=== PATIENT | male | born 1940 | race Caucasian/White ===

== ENCOUNTER 2016-12-02 12:38 | Inpatient (IN) | payer OTHER, BC ==
[~2016-12-02] VITALS: Ht 182.9 cm; Wt 133.6 kg
[~2016-12-02 12:38] MED LIST: ASPIR-TRIN325 M1 PO; ASPIRIN CHEWABL81 M1 PO; ASPIRIN E.C.81 M1 PO; ASPIRIN PO; ASPIRIN325 MG PO; ASPIRIN81 M1 PO; ATIVAN0.5 MG PO; ATROVENT 0.03%30 ML BOTH NARES; AUGMENTIN875 MG PO; Artane PO; Ativan PO; BUDEPRION SR150 MG PO; BUMETANIDE1 M1 PO; BUMETANIDE1 MG PO; Bumex PO; CAL-MAG TABLET1 EACH; CALCITRIOL0.25 MCG PO; CALCIUM PO; CEFTIN500 MG PO; CELEXA20 MG PO; CITALOPRAM HBR20 MG PO; CITALOPRAM HBR40 MG PO; Calcium/Magnesium 50 PO; DALIRESP500 MCG PO; DEXILANT60 MG PO; DuoNeb IH; Ecotrin PO; FLOMAX0.4 M1 PO; FLOMAX0.4 MG PO; FUROSEMIDE20 MG PO; Flomax PO; IPRATR-ALBUTEROL3 ML IH; IPRATROPIUM BRO30 ML BOTH NARES; LEVAQUIN500 MG PO; LEVOFLOXACIN750 MG PO; LOPRESSOR25 MG PO; LORAZEPAM0.5 MG PO; Lasix PO; Levaquin PO; Lopressor PO; MAGN PO; METOPROLOL TART25 MG PO; Mag-Ox PO; NEXIUM10 MG PO; NEXIUM40 MG PO; NUVIGIL150 MG PO; OMEGA-3 1,0001 EACH PO; Omega III EPA + DHA PO; PAXIL20 MG PO; PHENOBARBITAL15 MG PO; PHENOBARBITAL30 MG PO; PLAVIX75 MG PO; PREDNISONE10 MG PO; PRINIVIL40 MG PO; PRISTIQ50 MG PO; PROVENTIL2.5 MG/3 M IH; Plavix PO; Proventil,Ventolin H IH; RESTASIS 01 DROP/0.4 BOTH EYES; ROCALTROL0.25 MCG PO; Rocaltrol PO; SIMVASTATIN40 MG PO; SIMVASTATIN80 M1 PO; SINGULAIR10 MG PO; SPIRIVA RESPIMAT4 G1 IH; SPIRIVA RESPIMAT4 GM IH; SPIRIVA1 INHALATI IH; SYMBICORT60 INHALA1 IH; SYMBICORT60 INHALAT IH; Symbicort 160-4.5 mc IH; Symbicort 80-4.5 mcg IH; TRIHEXYPHENIDYL2 MG PO; Tums PO; ZESTRIL,PRINIVI10 M1 PO; ZOCOR80 MG PO; Zocor PO; [UNRECOGNIZED DRUG - OTHER] PO; celeXA PO; predniSONE PO
[2016-12-02 13:52] LABS: ADD MIUA? YES; BILIRUBIN NEGATIVE; BLOOD SMALL; COLOR YELLOW ((YELLOW)); GLUCOSE (STRIP) 50; KETONES NEGATIVE; LEUKOCYTES NEGATIVE; NITRITE NEGATIVE; PROTEIN (STRIP) 100; SPECIFIC GRAVITY 1.016 (1.000-1.030); UROBILINOGEN 0.2 MG/DL (0.2-1.0)
[2016-12-02 13:55] LABS: BACTERIA NONE SEEN /HPF; EPITHELIAL CELLS NONE SEEN /HPF; MUCUS NONE SEEN /LPF; RED BLOOD CELLS 0-5 /HPF (0-5); UCUL ADDED? NO; WHITE BLOOD CELLS 0-5 /HPF (0-5)
[2016-12-02 14:45] LABS: HEMATOCRIT 46.7 % (38.0-50.0); MCH 32.4 PG (29.0-34.0); MCHC 33.4 G/DL (30.0-36.0); MCV 96.9 FL (86-99); MEAN PLAT.VOLUME 10.3 uM^3 (9.0-12.4); PLATELET COUNT 114 K/uL (156-360); RBC DIS.WIDTH-CV 13.5 % (11.8-14.6); RBC DIS.WIDTH-SD 46.1 % (39-53); RED BLOOD COUNT 4.82 M/uL (4.00-5.50); WHITE BLOOD COUNT 16.5 K/uL (4.1-10.2)
[2016-12-02 14:55] LABS: INTER. NORMALIZED RATIO 1.1; PROTHROMBIN TIME 11.1 (9.2-11.2); PTT 30.1 (25-32)
[2016-12-02 14:56] LABS: INFLUENZA A VIRAL ANTIGEN NEGATIVE; INFLUENZA B VIRAL ANTIGEN NEGATIVE
[2016-12-02 14:59] LABS: CHLORIDE 100 mEq/L (99-109); POTASSIUM 4.3 mEq/L (3.7-5.4); SODIUM 138 mEq/L (136-147)
[2016-12-02 15:00] LABS: GLUCOSE 168 mg/dL (70-99)
[2016-12-02 15:02] LABS: ANION GAP 9 MEQ/L (2-14)
[2016-12-02 15:04] LABS: GFR ESTIMATE (CALCULATED) 48 mL/min/
[2016-12-02 15:05] LABS: UREA NITROGEN (BUN) 20 mg/dL (9-23)
[2016-12-02 15:14] LABS: TROP-I INTERPRETATION NEGATIVE; TROPONIN-I 0.05 ng/mL (0.0-0.30)
[2016-12-02 15:39] LABS: EOSINOPHIL (%) 1.1 % (0-5); EOSINOPHIL COUNT 0.2 K/uL (0-0.3); HEMATOLOGY COMMENT 1 SMEAR COMPATIBLE; IMMATURE GRANULOCYTE (%) 0.3 % (0.0-0.7); IMMATURE GRANULOCYTE COUNT 0.5 K/uL; LYMPHOCYTE COUNT 1.8 K/uL (1.0-2.8); MONOCYTE (%) 11.6 % (3-12); MONOCYTE COUNT 1.9 K/uL (0-0.8); NEUTROPHIL (%) 76.2 % (45-76); NEUTROPHIL COUNT 12.6 K/uL (1.8-6.4); PLAT.SUFFICIENCY DECREASED; USER ID NPD
[2016-12-02] MEDS ORDERED: LIPITOR40 MG PO (16:47)
[2016-12-02] MEDS ORDERED: ALBUTEROL SULFATE (16:48)
[2016-12-02] MEDS ORDERED: PROVENTIL,2.5 MG/3 M IH (16:55)
[2016-12-02 19:35] VITALS: BP 123/78
[2016-12-02 22:58] VITALS: BP 120/78
[2016-12-03 07:29] LABS: ANION GAP 10 MEQ/L (2-14); CHLORIDE 101 MEQ/L (99-109); GFR ESTIMATE (CALCULATED) 52 mL/min/; GLUCOSE 153 mg/dL (70-99); POTASSIUM 4.1 MEQ/L (3.7-5.4); SAMPLE HEMOLYSIS CHECK 0; SAMPLE ICTERIC CHECK 0; SAMPLE LIPEMIA CHECK 0; SODIUM 141 MEQ/L (136-147); UREA NITROGEN (BUN) 21 mg/dL (9-23)
[2016-12-03 08:25] LABS: HEMATOCRIT 43.2 % (38.0-50.0); MCH 32.7 PG (29.0-34.0); MCHC 33.6 G/DL (30.0-36.0); MCV 97.3 FL (86-99); MEAN PLAT.VOLUME 10.7 uM^3 (9.0-12.4); PLATELET COUNT 105 K/uL (156-360); RBC DIS.WIDTH-CV 13.7 % (11.8-14.6); RBC DIS.WIDTH-SD 46.9 % (39-53); RED BLOOD COUNT 4.44 M/uL (4.00-5.50); WHITE BLOOD COUNT 14.1 K/uL (4.1-10.2)
[2016-12-03 08:50] VITALS: BP 162/90
[2016-12-03 17:42] VITALS: BP 167/92
[2016-12-03 21:54] VITALS: BP 129/79
[2016-12-04 07:18] LABS: ANION GAP 10 MEQ/L (2-14); CHLORIDE 102 MEQ/L (99-109); GFR ESTIMATE (CALCULATED) 52 mL/min/; GLUCOSE 162 mg/dL (70-99); POTASSIUM 4.4 MEQ/L (3.7-5.4); SAMPLE HEMOLYSIS CHECK 0; SAMPLE ICTERIC CHECK 0; SAMPLE LIPEMIA CHECK 0; SODIUM 140 MEQ/L (136-147); UREA NITROGEN (BUN) 21 mg/dL (9-23)
[2016-12-04 07:39] LABS: EOSINOPHIL (%) 5.2 % (0-5); EOSINOPHIL COUNT 0.5 K/uL (0-0.3); IMMATURE GRANULOCYTE (%) 0.2 % (0.0-0.7); MCH 33.1 PG (29.0-34.0); MCHC 33.8 G/DL (30.0-36.0); MCV 97.9 FL (86-99); MEAN PLAT.VOLUME 10.9 uM^3 (9.0-12.4); MONOCYTE (%) 11.2 % (3-12); NEUTROPHIL (%) 60.2 % (45-76); NEUTROPHIL COUNT 5.3 K/uL (1.8-6.4); PLATELET COUNT 99 K/uL (156-360); RBC DIS.WIDTH-CV 13.8 % (11.8-14.6); RBC DIS.WIDTH-SD 48.9 % (39-53); RED BLOOD COUNT 4.29 M/uL (4.00-5.50)
[2016-12-04 07:41] LABS: WHITE BLOOD COUNT 8.8 K/uL (4.1-10.2)
[2016-12-04 08:29] VITALS: BP 113/74
[2016-12-04 16:00] VITALS: BP 110/62
[2016-12-04 22:37] VITALS: BP 141/78
[2016-12-05 07:31] LABS: ANION GAP 9 MEQ/L (2-14); CHLORIDE 102 MEQ/L (99-109); GFR ESTIMATE (CALCULATED) 57 mL/min/; GLUCOSE 163 mg/dL (70-99); POTASSIUM 4.1 MEQ/L (3.7-5.4); SAMPLE HEMOLYSIS CHECK 0; SAMPLE ICTERIC CHECK 0; SAMPLE LIPEMIA CHECK 0; SODIUM 138 MEQ/L (136-147); UREA NITROGEN (BUN) 24 mg/dL (9-23)
[2016-12-05 08:16] VITALS: BP 193/91
[2016-12-05 10:24] VITALS: BP 169/74
[2016-12-05] MEDS ORDERED: LEVAQUIN500 MG PO (12:49)
== END 2016-12-05 14:35 | disposition home or self-care (01) | DRG 194 ==
LOC: EME → EDBD 12:38 → EDOF 15:39 → 5EAST 15:39
PROVIDERS: Emergency Medicine; Family Medicine
PROC: 5A09457 Assistance with Respiratory Ventilation, 24-96 Consecutive Hours, Continuous Positive Airway Pressure (ICD-10-PCS; principal; 2016-12-03)
DX: J15.9 Unspecified bacterial pneumonia (principal); I50.32 Chronic diastolic (congestive) heart failure; J98.11 Atelectasis; F33.9 Major depressive disorder, recurrent, unspecified; J44.9 Chronic obstructive pulmonary disease, unspecified; N18.2 Chronic kidney disease, stage 2 (mild); E11.22 Type 2 diabetes mellitus with diabetic chronic kidney disease; Z99.81 Dependence on supplemental oxygen; M62.81 Muscle weakness (generalized); E78.5 Hyperlipidemia, unspecified; G47.30 Sleep apnea, unspecified; F41.9 Anxiety disorder, unspecified; I65.22 Occlusion and stenosis of left carotid artery; G40.909 Epilepsy, unspecified, not intractable, without status epilepticus; E66.9 Obesity, unspecified; I66.09 Occlusion and stenosis of unspecified middle cerebral artery; F01.50 Vascular dementia, unspecified severity, without behavioral disturbance, psychotic disturbance, mood disturbance, and anxiety; I67.2 Cerebral atherosclerosis; Z68.39 Body mass index [BMI] 39.0-39.9, adult; I69.322 Dysarthria following cerebral infarction; Z87.891 Personal history of nicotine dependence
CPT/HCPCS: 70450; 71010; 80048; 81003; 83605; 83880; 84484; 85025; 85027; 85610; 85730; 87040; 87502; 93005; 94640; 94640 76; 94660; 94799; 97530 GP; 99202; 99281; 99285; J0456; J0696; J1644; J1940; J2543; J3370; J7050

== ENCOUNTER 2018-03-24 15:30 | Emergency (ER) | payer OTHER, BC ==
[~2018-03-24] VITALS: Ht 182.9 cm; Wt 114.4 kg
[~2018-03-24 15:30] MED LIST changes: +ALBUTEROL SULFATE; +LIPITOR40 MG PO; +PROVENTIL,2.5 MG/3 M IH
[2018-03-24 16:48] LABS: HEMATOCRIT 44.4 % (38.0-50.0); MCH 32.5 PG (29.0-34.0); MCHC 33.8 G/DL (30.0-36.0); MCV 96.1 FL (86-99); PLATELET COUNT 117 K/uL (156-360); RBC DIS.WIDTH-CV 13.2 % (11.8-14.6); RBC DIS.WIDTH-SD 46.8 % (39-53); RED BLOOD COUNT 4.62 M/uL (4.00-5.50); WHITE BLOOD COUNT 7.7 K/uL (4.1-10.2)
[2018-03-24 16:56] LABS: CHLORIDE 100 mEq/L (99-109); POTASSIUM 4.5 mEq/L (3.7-5.4); SODIUM 137 mEq/L (136-147)
[2018-03-24 16:57] LABS: GLUCOSE 109 mg/dL (70-99)
[2018-03-24 17:01] LABS: GFR ESTIMATE (CALCULATED) > 59 mL/min/ (58.99-99999)
[2018-03-24 17:02] LABS: UREA NITROGEN (BUN) 21 mg/dL (9-23)
[2018-03-24 17:08] LABS: TROP-I INTERPRETATION NEGATIVE; TROPONIN-I 0.01 ng/mL (0.0-0.30)
[2018-03-24 19:04] VITALS: BP 135/71
== END 2018-03-24 19:05 | disposition home or self-care (01) ==
LOC: EME 15:30
PROVIDERS: Emergency Medicine
DX: Z04.3 Encounter for examination and observation following other accident (principal); I49.3 Ventricular premature depolarization; W01.0XXA Fall on same level from slipping, tripping and stumbling without subsequent striking against object, initial encounter; E78.5 Hyperlipidemia, unspecified; I11.0 Hypertensive heart disease with heart failure; I50.9 Heart failure, unspecified; J44.9 Chronic obstructive pulmonary disease, unspecified; K21.9 Gastro-esophageal reflux disease without esophagitis; F32.9 Major depressive disorder, single episode, unspecified; Z86.73 Personal history of transient ischemic attack (TIA), and cerebral infarction without residual deficits; Z99.81 Dependence on supplemental oxygen; Z95.5 Presence of coronary angioplasty implant and graft; Z79.02 Long term (current) use of antithrombotics/antiplatelets; Z87.891 Personal history of nicotine dependence
CPT/HCPCS: 71046; 80048; 84484; 85027; 93005; 99281; 99284

== ENCOUNTER 2018-06-11 12:16 | Inpatient (IN) | payer OTHER, BC ==
[~2018-06-11] VITALS: Ht 182.9 cm; Wt 130.7 kg
[2018-06-11 15:32] LABS: HEMATOCRIT 46.4 % (38.0-50.0); HEMOGLOBIN 15.2 G/DL (12.5-16.6); MCH 31.5 PG (29.0-34.0); MCHC 32.8 G/DL (30.0-36.0); MCV 96.3 FL (86-99); PLATELET COUNT 131 K/uL (156-360); RBC DIS.WIDTH-CV 13.3 % (11.8-14.6); RBC DIS.WIDTH-SD 47.2 % (39-53); RED BLOOD COUNT 4.82 M/uL (4.00-5.50); WHITE BLOOD COUNT 10.2 K/uL (4.1-10.2)
[2018-06-11 15:41] LABS: CHLORIDE 102 mEq/L (99-109); POTASSIUM 4.9 mEq/L (3.7-5.4); SODIUM 139 mEq/L (136-147)
[2018-06-11 15:42] LABS: GLUCOSE 106 mg/dL (70-99)
[2018-06-11 15:46] LABS: CREATININE 1.4 mg/dL (0.6-1.3); GFR ESTIMATE (CALCULATED) 52 mL/min/ (58.99-99999)
[2018-06-11 15:47] LABS: UREA NITROGEN (BUN) 28 mg/dL (9-23)
[2018-06-11 15:53] LABS: TROP-I INTERPRETATION INDETERMINATE; TROPONIN-I 0.47 ng/mL (0.0-0.30)
[2018-06-11 17:09] LABS: TROP-I INTERPRETATION INDETERMINATE; TROPONIN-I 0.45 ng/mL (0.0-0.30)
[2018-06-11] MEDS ORDERED: LITE COAT ASPI325 M1 PO (17:52)
[2018-06-11] MEDS ORDERED: NEXIUM 24HR20 M2 PO (17:54)
[2018-06-11] MEDS ORDERED: PHENOBARBITAL30 MG PO (17:57)
[2018-06-11 20:27] VITALS: BP 162/84
[2018-06-11 22:56] VITALS: BP 139/50
[2018-06-11 23:25] LABS: TROP-I INTERPRETATION POSITIVE
[2018-06-11 23:27] LABS: TROPONIN-I 0.74 ng/mL (0.0-0.30)
[2018-06-12 00:42] LABS: INTER. NORMALIZED RATIO 1.2
[2018-06-12 00:59] LABS: PTT 193.3 SEC (25-37)
[2018-06-12 06:56] LABS: BASOPHIL (%) 0.5 % (0-1); BASOPHIL COUNT 0.1 K/uL (0-0.1); EOSINOPHIL (%) 4.8 % (0-5); EOSINOPHIL COUNT 0.5 K/uL (0-0.3); HEMATOCRIT 46.9 % (38.0-50.0); HEMOGLOBIN 15.3 G/DL (12.5-16.6); IMMATURE GRANULOCYTE (%) 0.4 % (0.0-0.7); LYMPHOCYTE (%) 27.5 % (15-42); LYMPHOCYTE COUNT 2.6 K/uL (1.0-2.8); MCH 31.5 PG (29.0-34.0); MCHC 32.6 G/DL (30.0-36.0); MCV 96.7 FL (86-99); MONOCYTE (%) 10.4 % (3-12); NEUTROPHIL (%) 56.4 % (45-76); NEUTROPHIL COUNT 5.4 K/uL (1.8-6.4); NRBC (%) 0.3 /100 WBC (0-0); PLATELET COUNT 130 K/uL (156-360); RBC DIS.WIDTH-CV 13.5 % (11.8-14.6); RBC DIS.WIDTH-SD 48.4 % (39-53); RED BLOOD COUNT 4.85 M/uL (4.00-5.50); WHITE BLOOD COUNT 9.5 K/uL (4.1-10.2)
[2018-06-12 07:20] LABS: ALBUMIN 3.4 G/DL (3.2-4.8); ALKALINE PHOSPHATASE 106 IU/L (3-129); ALT (GPT) 32 IU/L (3-49); AST (GOT) 34 IU/L (2-34); CHLORIDE 98 MEQ/L (99-109); CREATININE 1.4 MG/DL (0.6-1.3); GFR ESTIMATE (CALCULATED) 52 mL/min/ (58.99-99999); GLUCOSE 122 mg/dL (70-99); POTASSIUM 4.6 MEQ/L (3.7-5.4); SODIUM 139 MEQ/L (136-147); TOTAL BILIRUBIN 0.5 MG/DL (0.0-1.0); TOTAL PROTEIN 5.9 G/DL (6.4-8.3); UREA NITROGEN (BUN) 30 mg/dL (9-23)
[2018-06-12 07:31] LABS: TROP-I INTERPRETATION INDETERMINATE; TROPONIN-I 0.57 ng/mL (0.0-0.30)
[2018-06-12 08:13] VITALS: BP 155/75
[2018-06-12 09:58] LABS: HEMOGLOBIN A1c (GLYCOHEMOGLOB) 6.4 % (Below 5.7)
[2018-06-12 11:54] VITALS: BP 137/70
[2018-06-12 15:31] LABS: TROP-I INTERPRETATION INDETERMINATE; TROPONIN-I 0.31 ng/mL (0.0-0.30)
[2018-06-12 15:39] VITALS: BP 109/80
[2018-06-12 19:47] VITALS: BP 140/70
[2018-06-12 22:16] VITALS: BP 120/72
[2018-06-13 05:02] VITALS: BP 126/80
[2018-06-13 08:51] VITALS: BP 140/67
[2018-06-13 11:59] VITALS: BP 160/59
[2018-06-13 16:55] VITALS: BP 148/78
[2018-06-13 19:30] VITALS: BP 150/75
[2018-06-13 23:29] VITALS: BP 147/58
[2018-06-14 03:42] VITALS: BP 149/71
[2018-06-14 05:57] LABS: BASOPHIL (%) 0.4 % (0-1); EOSINOPHIL COUNT 0.5 K/uL (0-0.3); HEMATOCRIT 43.6 % (38.0-50.0); HEMOGLOBIN 13.9 G/DL (12.5-16.6); IMMATURE GRANULOCYTE (%) 0.4 % (0.0-0.7); LYMPHOCYTE COUNT 2.1 K/uL (1.0-2.8); MCH 30.7 PG (29.0-34.0); MCHC 31.9 G/DL (30.0-36.0); MCV 96.2 FL (86-99); MONOCYTE (%) 10.2 % (3-12); MONOCYTE COUNT 0.9 K/uL (0-0.8); NEUTROPHIL COUNT 4.9 K/uL (1.8-6.4); PLATELET COUNT 135 K/uL (156-360); RBC DIS.WIDTH-CV 13.4 % (11.8-14.6); RBC DIS.WIDTH-SD 48.1 % (39-53); RED BLOOD COUNT 4.53 M/uL (4.00-5.50); WHITE BLOOD COUNT 8.5 K/uL (4.1-10.2)
[2018-06-14 06:21] LABS: CHLORIDE 101 MEQ/L (99-109); CREATININE 1.3 MG/DL (0.6-1.3); GFR ESTIMATE (CALCULATED) 57 mL/min/ (58.99-99999); GLUCOSE 133 mg/dL (70-99); POTASSIUM 4.2 MEQ/L (3.7-5.4); SODIUM 138 MEQ/L (136-147); UREA NITROGEN (BUN) 31 mg/dL (9-23)
[2018-06-14 07:14] VITALS: BP 161/59
[2018-06-14 10:52] VITALS: BP 168/60
[2018-06-14 15:31] VITALS: BP 137/51
[2018-06-14 19:46] VITALS: BP 129/87
[2018-06-15 00:16] VITALS: BP 138/78
[2018-06-15 02:55] VITALS: BP 136/79
[2018-06-15 08:54] VITALS: BP 123/84
[2018-06-15] MEDS ORDERED: DUONEB 2.5-0.5 M3 ML AEROSOL (10:08)
[2018-06-15] MEDS ORDERED: DALIRESP500 MCG PO (10:08)
[2018-06-15] MEDS ORDERED: IPRATROPIUM BRO30 ML BOTH NARES (10:08)
[2018-06-15] MEDS ORDERED: LEVAQUIN500 MG PO (10:09)
[2018-06-15 11:44] VITALS: BP 157/74
== END 2018-06-15 14:37 | DRG 562 ==
LOC: EME 12:16 → EDOF 18:20 → 4EAST 18:20 → CANRESERV 18:43 → ENRESERV 19:35 → 4EAST 20:23
PROVIDERS: Emergency Medicine; Family Medicine
PROC: 5A09357 Assistance with Respiratory Ventilation, Less than 24 Consecutive Hours, Continuous Positive Airway Pressure (ICD-10-PCS; principal; 2018-06-12)
DX: S46.912A Strain of unspecified muscle, fascia and tendon at shoulder and upper arm level, left arm, initial encounter (principal); J18.9 Pneumonia, unspecified organism; I47.2 Ventricular tachycardia; J44.0 Chronic obstructive pulmonary disease with (acute) lower respiratory infection; N17.9 Acute kidney failure, unspecified; E11.22 Type 2 diabetes mellitus with diabetic chronic kidney disease; I27.20 Pulmonary hypertension, unspecified; I08.1 Rheumatic disorders of both mitral and tricuspid valves; I12.9 Hypertensive chronic kidney disease with stage 1 through stage 4 chronic kidney disease, or unspecified chronic kidney disease; N18.2 Chronic kidney disease, stage 2 (mild); R74.8 Abnormal levels of other serum enzymes; R09.02 Hypoxemia; F01.50 Vascular dementia, unspecified severity, without behavioral disturbance, psychotic disturbance, mood disturbance, and anxiety; I49.3 Ventricular premature depolarization; E78.5 Hyperlipidemia, unspecified; G47.30 Sleep apnea, unspecified; G40.909 Epilepsy, unspecified, not intractable, without status epilepticus; K21.9 Gastro-esophageal reflux disease without esophagitis; F32.9 Major depressive disorder, single episode, unspecified; R29.6 Repeated falls; W06.XXXA Fall from bed, initial encounter; Y92.003 Bedroom of unspecified non-institutional (private) residence as the place of occurrence of the external cause; Z99.81 Dependence on supplemental oxygen; I69.320 Aphasia following cerebral infarction; Z79.82 Long term (current) use of aspirin; Z79.02 Long term (current) use of antithrombotics/antiplatelets; Z95.5 Presence of coronary angioplasty implant and graft; Z87.891 Personal history of nicotine dependence; Z99.3 Dependence on wheelchair
CPT/HCPCS: 70450; 71045; 71275; 73060; 73090; 73130; 80048; 80053; 83036; 83880; 84484; 85025; 85027; 85610; 85730; 93005; 93306; 94799; 99281; 99285; J1940; J1956